=== PATIENT | female | born 1970 | race Caucasian/White ===

== ENCOUNTER 2016-11-07 00:01 | Emergency (ER) | payer MEDICARE, OTHER ==
[2016-11-07 03:22] LABS: HEMOGLOBIN 10.5 gm/dl (12.3-15.3); RED BLOOD COUNT 3.58 M/UL (4.00-5.10); WHITE BLOOD COUNT 16.5 K/UL (4.5-11.0)
[2016-11-07 03:45] LABS: BUN/CREATININE RATIO 33 (0-10)
== END 2016-11-07 05:33 | disposition home or self-care (01) ==
LOC: ER1 00:01
PROVIDERS: Family Medicine
DX: R42 Dizziness and giddiness (principal); R06.00 Dyspnea, unspecified; G47.30 Sleep apnea, unspecified; Z88.6 Allergy status to analgesic agent; Z88.5 Allergy status to narcotic agent; Z79.51 Long term (current) use of inhaled steroids
CPT/HCPCS: 36415; 71020; 80053; 82550; 82553; 83874; 83880; 84484; 85025; 93005; 99284